=== PATIENT | male | born 1965 | race Caucasian/White ===

== ENCOUNTER 2017-04-19 14:36 | Emergency (ER) | payer OTHER ==
[~2017-04-19] VITALS: Ht 180.3 cm; Wt 118.2 kg
[2017-04-19 14:38] VITALS: PULSE 70; TEMP 98.8
[2017-04-19] MEDS ORDERED: ZOFRAN ODT8 MG PO (15:26)
[2017-04-19] MEDS ORDERED: ANTIVERT 25MG25 MG PO (15:26)
[2017-04-19 15:28] VITALS: BP 146/91
== END 2017-04-19 15:40 | disposition home or self-care (01) ==
LOC: COL.ER 14:36
DX: R42 Dizziness and giddiness (principal); R11.0 Nausea

== ENCOUNTER 2019-03-21 13:11 | Emergency (ER) | payer BC ==
[~2019-03-21] VITALS: Ht 180.3 cm; Wt 132.3 kg
[~2019-03-21 13:11] MED LIST: ANTIVERT 25MG25 MG PO; ZOFRAN ODT8 MG PO
[2019-03-21 13:16] VITALS: BP 143/96; TEMP 98
[2019-03-21 15:08] VITALS: PULSE 61
== END 2019-03-21 15:08 | disposition home or self-care (01) ==
LOC: COL.ER 13:11
DX: T15.01XA Foreign body in cornea, right eye, initial encounter (principal)